=== PATIENT | male | born 1995 | race Caucasian/White ===

== ENCOUNTER 2025-02-03 19:45 | Emergency (ER) | payer BC, SELFPAY ==
[2025-02-03 19:51] VITALS: BP 146/92
[2025-02-03 22:21] VITALS: BP 147/93
[2025-02-03 23:47] VITALS: BMI 33.8
[2025-02-04] MEDS: DECADRON 10 MG IV (00:40)
[2025-02-04] MEDS: TORADOL 15 MG IV (00:40)
[2025-02-04 02:00] VITALS: BP 133/78
[2025-02-04 02:48] LABS: % Basophils 0.3 % (0-2); % Eosinophils 1.6 % (0-6); % Immature Granulocytes 0.2 % (0-0.5); % Lymphocytes 33.3 % (20.5-51.1); % Monocytes 9.1 % (1.7-9.3); % Neutrophils 55.5 % (42.2-75.2); Absolute Eosinophils 0.1 10^3/uL (0-0.7); Absolute Lymphocytes 2.1 10^3/uL (1.2-3.4); Absolute Monocytes 0.6 10^3/uL (0.1-0.6); Absolute Neutrophils 3.5 10^3/uL (1.4-6.5); Hematocrit 44.2 % (39.0-52.0); Hemoglobin 15.9 g/dL (13.0-18.0); Mean Corpuscular Hgb 29.7 pg (27.0-31.0); Mean Corpuscular Volume 82.6 fL (80.0-94.0); Mean Platelet Volume 9.1 fL (7.4-10.4); Nucleated Red Blood Cells % 0 % (-); Platelet Count 201 10^3/uL (130-400); Red Blood Cell Count 5.35 10^6/uL (4.70-6.10); Red Cell Dist. Width 12.6 % (11.5-14.5); White Blood Cell Count 6.3 10^3/uL (4.8-10.8)
--- NOTE | 2025-02-04 03:04 | ED.GENMED ---
History of Present Illness
General
Chief Complaint: Swallowing Problem
Source: patient
Exam Limitations: none
Time Seen by Provider: 02/03/25 23:49
Nursing documentation reviewed up to this point in time: agreed with
History of Present Illness
History of Present Illness:
29-year-old male presenting to the emergency department today with concerns of some difficulty swallowing for the past week some mild pain mild swelling denies any fevers chest pain shortness of breath.
Review of Systems
Review of Systems
Allergies reviewed?: Yes
All Other Systems: ROS reviewed and negative except as documented in HPI and ROS
Phy Exam
Physical Exam
Physical Exam:
GENERAL: Alert , in no apparent distress
EYE: pupils equal and reactive
NECK: Supple, no significant adenopathy.
ENT: Soft palate posteriorly superficial ulcerations but no significant swelling to the tonsils. o/p clr, mmm.
CARDIAC: Regular rate and rhythm .
LUNGS: Clear breath sounds bilaterally, no acute respiratory distress, no wheezes/rales/rhonchi
ABDOMEN: Soft, without focal tenderness, no r/g, no cvat
NEUROLOGICAL: Alert and oriented, no focal neuro deficits
SKIN: Warm and dry, skin intact.
MUSCULOSKELETAL: No edema, well perfused.
PSYCH: Normal and appropriate interaction.
Course
Orders/Labs/Results
Orders:
Orders
02/04/25 00:36
CT Neck With Iv Contrast Urgent
Comment:
Reason For Exam: nck pain swelling trouble swallowing, hx of CA
Dexamethasone Sod Phosphate [Decadron] 10 mg IV NOW STA
Ketorolac [Toradol] 15 mg IV NOW STA
02/04/25 02:41
BMP [Basic Metabolic Panel] Urgent
CBC/With Diff [Complete Blood Count/With Diff] Urgent
02/04/25 02:41
Vital Signs
Initial and Last Documented VS:
Initial Vital Signs
Temp Pulse Resp BP Pulse Ox
98.3 F 73 20 146/92 98
02/03/25 19:51 02/03/25 19:51 02/03/25 19:51 02/03/25 19:51 02/03/25 19:51
Last Documented Vital Signs
Temp Pulse Resp BP Pulse Ox
98.3 F 69 18 147/93 98
02/03/25 19:51 02/03/25 22:21 02/03/25 22:21 02/03/25 22:21 02/03/25 23:50
MDM/Problems Addressed
MDM/Problems Addressed:
29-year-old male presenting to the emergency department today with concerns of difficulty swallowing over the past week denies significant observable swelling no fevers. Here has some shallow ulcers to the posterior pharynx but otherwise no
significant swelling. CT scan was performed considering his history of cancer. This did not show any acute abnormalities. With a steroid to help with his sciatic symptoms as well as potential swelling of the back of the throat. Otherwise stable
for outpatient follow-up. Return precaution given
*Critical Care Note
Total Time (30-74mins, 75-104mins- exclusive of procedures): Not Applicable
ED Attending Note
-
Portions of this chart may have been created with voice recognition software.� Occasional wrong word or��sound alike� substitutions may have occurred due to the inherent limitations of voice recognition software.
Discharge Plan
Departure
Patient Disposition: Home (Routine Discharge)
Date of Disposition: 02/04/25
Time of Disposition: 03:06
Patient with high blood pressure during this ER visit?: No
Condition: Good
Covid-19: Not Applicable
Discharge Problem:
Throat pain
Instructions: Sore Throat, Adult (DC)
Prescriptions:
New
prednisone 20 mg tablet
40 mg PO DAILY 4 Days Qty: 8 0RF
Referrals:
Louis Novak, [Family Provider, Family Practice]
Activity Restrictions/Additional Instructions:
You came to the emergency department today with concerns of throat discomfort. Here you had a reassuring assessment. Please take the prescribed steroid. Follow-up closely with your primary care doctor. Return for any worsening, new or concerning
symptoms.
Interventions
Interventions:
*Risk Screen - Suicide Last Done: 02/03/25 19:51
*General Assessment Last Done: 02/03/25 19:51
*Neglect/Abuse Screening Last Done: 02/03/25 19:51
*ED- Fall Risk Assessment Last Done: 02/03/25 23:48
*ED COVID-19 Vaccine History Last Done: 02/03/25 23:47
ED-EENT Assessment Last Done: 02/03/25 23:50
FN-Hsbgbo-Aeojurmdgl Assessment Last Done: 02/03/25 23:52
ED- Pulmonary Assessment Last Done: 02/03/25 23:50
ED- Neurological Assessment Last Done: 02/03/25 23:50
ED-Musculoskeletal Assessment Last Done: 02/03/25 23:54
ED Swallowing Screen Last Done: 02/03/25 23:48
Discharge Date and Time
Print Language: GUINEAN
[2025-02-04 03:06] LABS: Blood Urea Nitrogen 12 mg/dl (9-20); Carbon Dioxide 28 mmol/L (22-30); Chloride 103 mmol/L (98-107); Estimated Creatinine Clearance > 125 ml/min; Glucose 85 mg/dl (70-99); Potassium 4.3 mmol/L (3.5-5.1); Sodium 143 mmol/L (135-145); eGFR > 60.00
[2025-02-04 03:30] VITALS: BP 133/78
== END 2025-02-04 03:30 | disposition home or self-care (01) ==
LOC: EMR 19:45
PROVIDERS: Physician Assistant; EMERGENCY PHYSICIAN Student in an Organized Health Care Education/Training Program; FAMILY PHYSICIAN Family Medicine
DX: R07.0 Pain in throat (principal)
CPT/HCPCS: 99284; 96374; 96375; 70491; 80048; 85025; Q9967

== ENCOUNTER → 2025-03-29 14:30 | Outpatient (REF) | payer BC, SELFPAY | LOC: CLAB 14:30 | PROVIDERS: ATTENDING PHYSICIAN Physician Assistant | DX: B37.0 Candidal stomatitis (principal) | CPT/HCPCS: 87070; 87205 ==

== ENCOUNTER → 2025-04-07 07:23 | Outpatient (REF) | payer BC, SELFPAY | LOC: MRI 07:23 | PROVIDERS: ATTENDING PHYSICIAN Physical Medicine & Rehabilitation; FAMILY PHYSICIAN Family Medicine | DX: M54.16 Radiculopathy, lumbar region (principal) | CPT/HCPCS: 72148 ==

== ENCOUNTER → 2025-07-13 15:56 | Outpatient (REF) | payer BC, SELFPAY | LOC: RAD 15:56 | PROVIDERS: ATTENDING PHYSICIAN Nurse Practitioner Family; FAMILY PHYSICIAN Family Medicine; REFERRING PHYSICIAN Internal Medicine Critical Care Medicine | DX: R13.10 Dysphagia, unspecified (principal); R91.1 Solitary pulmonary nodule | CPT/HCPCS: 71250; 76536 ==

== ENCOUNTER 2025-08-15 13:49 | Emergency (ER) | payer BC, SELFPAY ==
[2025-08-15] VITALS (8 sets, daily range): BP systolic 110–140; BP diastolic 73–85; PULSE 68–83; BMI 30.4
[2025-08-15 14:25] LABS: Hematocrit 46.0 % (39.0-52.0); Hemoglobin 16.5 g/dL (13.0-18.0); Mean Corp Hgb Conc. 35.9 g/dL (33.0-37.0); Mean Corpuscular Volume 79.7 fL (80.0-94.0); Nucleated Red Blood Cells % 0 % (-); Platelet Count 192 10^3/uL (130-400); Red Cell Dist. Width 12.5 % (11.5-14.5)
[2025-08-15 14:45] LABS: ALT (SGPT) 32 U/L (0-50); AST (SGOT) 24 U/L (17-59); Albumin 5.2 g/dl (3.5-5.0); Alkaline Phosphatase 65 U/L (38-126); Blood Urea Nitrogen 8 mg/dl (9-20); Calcium 10.0 mg/dl (8.4-10.2); Carbon Dioxide 30 mmol/L (22-30); Chloride 99 mmol/L (98-107); Glucose 83 mg/dl (70-99); Potassium 4.1 mmol/L (3.5-5.1); Sodium 137 mmol/L (135-145); Total Protein 8.1 g/dl (6.3-8.2); eGFR > 60.00
--- NOTE | 2025-08-15 17:09 | ED.GENMED ---
History of Present Illness
General
Chief Complaint: Fainting Sensation
Source: patient
Exam Limitations: none
Time Seen by Provider: 08/15/25 16:57
Nursing documentation reviewed up to this point in time: agreed with
History of Present Illness
History of Present Illness:
Patient to the emergency department with complaint of weakness, near syncope. States his symptoms started today while at work. 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 He was
seen by the school nurse. Blood pressure checked by nurse and he was told that his blood pressure was running high. He also complains of increasing shortness of breath and cough. states that he had diarrhea over the weekend. This has
resolved. He denies any fever or chills. No prior history of same. Brought to the emergency department by spouse for evaluation. He reports having panic attacks in the past but states symptoms today are not similar to panic attacks in the past.
Past History
Past History
ED Past Medical History: Asthma and Psychiatric (Anxiety)
Review of Systems
Review of Systems
Allergies reviewed?: Yes
All Other Systems: ROS reviewed and negative except as documented in HPI and ROS
EENT: Reports no symptoms
Respiratory: Reports cough and trouble breathing
Cardiac: Reports other (Near syncope)
ABD/GI: Reports diarrhea (2 days ago)
: Reports no symptoms
Musculoskeletal: Reports no symptoms
Skin: Reports no symptoms
Neurological: Reports weakness
Psychiatric: Reports no symptoms
Phy Exam
General Physical Exam
General Presentation: well appearing and no apparent distress
General age: appears stated age
General Skin: warm and dry
General Habitus: normal
Cardiovascular Exam
Cardiovascular Exam: regular rate/rhythm and no edema
Pulmonary Exam
Pulmonary Exam: lungs clear and no respiratory distress
Gastrointestinal Exam
Gastrointestinal Exam: normal bowel sounds, non tender, soft, no organomegaly, no pulsatile mass and non distended
Neurological Exam
Neurological Exam: alert and oriented x3
Musculoskeletal Exam
Musculoskeletal Exam: full ROM and neuro vasc intact
Skin Exam
Skin Exam: normal color, warm/dry and no rash
Psychiatric Exam
Psychiatric Exam: normal mood/affect
Course
Orders/Labs/Results
Orders:
Orders
08/15/25 13:57
Electrocardiogram (*1) Urgent
Reason for Study: Hypertension, Benign
EKG- Treatment ONCE
08/15/25 14:14
CMP [Comprehensive Metabolic Panel] Urgent
Complete Blood Count/With Diff Urgent
08/15/25 17:08
Orthostatic VS- Treatment ONCE
08/15/25 17:09
D-Dimer Urgent
0.9% Sodium Chloride 1000 ml [Nss] 1,000 ml IV BOLUS
CR Chest - 2 Views Urgent
Comment:
Reason For Exam: SOB
Abnormal Lab Results
08/15/25
14:14
MCV 79.7 L fL
(80.0-94.0)
BUN 8 L mg/dl
(9-20)
Albumin 5.2 H g/dl
(3.5-5.0)
08/15/25 14:14
08/15/25 14:14
Vital Signs
Initial and Last Documented VS:
Initial Vital Signs
Resp
18
08/15/25 13:51
Last Documented Vital Signs
Temp Pulse Resp BP Pulse Ox
98.0 F 65 18 118/84 97
08/15/25 13:55 08/15/25 19:30 08/15/25 13:55 08/15/25 19:01 08/15/25 19:30
*Radiology
Radiology exam reviewed: radiology read reviewed
*Pulse Oximetry
SaO2: 99
Oxygen Mode of Delivery: Room air
Patient hypoxic: no
*Critical Care Note
Total Time (30-74mins, 75-104mins- exclusive of procedures): Not Applicable
Update Note
Update Note:
Patient to the emergency department for evaluation of near syncopal event. Incident occurred today while at work. He states he was teaching a class when he suddenly felt like he was going to pass out. He also reports feeling more short of breath
over the past couple days. He denies any fever or chills. On arrival to ED he is awake alert and oriented vital signs are stable and he remains afebrile. Labs reviewed WBC of 5.8, CMP unremarkable. Chest x-ray without acute findings. Pulse ox
98% on room air. EKG normal sinus rhythm. No findings to explain his symptoms today. Will discharge home, close follow-up with PCP. He was instructed on signs and symptoms to return to the emergency department and he is agreeable to this plan.
ED Attending Note
-
Portions of this chart may have been created with voice recognition software.� Occasional wrong word or��sound alike� substitutions may have occurred due to the inherent limitations of voice recognition software.
Discharge Plan
Departure
Patient Disposition: Home (Routine Discharge)
Date of Disposition: 08/15/25
Time of Disposition: 19:34
Patient with high blood pressure during this ER visit?: No
Condition: Good
Covid-19: Not Applicable
Discharge Problem:
Near syncope
Instructions: Near Fainting (DC)
Prescriptions:
No Action
prednisone 20 mg tablet
40 mg PO DAILY 4 Days Qty: 8 0RF
Referrals:
UNKNOWN,PT [Unknown Provider]
Stand Alone Forms: Return to Work
Activity Restrictions/Additional Instructions:
Follow-up with your family doctor. Return to the emergency department immediately for any changes in/worsening of your symptoms.
Interventions
Interventions:
*Risk Screen - Suicide Last Done: 08/15/25 13:51
*General Assessment Last Done: 08/15/25 16:48
*Neglect/Abuse Screening Last Done: 08/15/25 16:48
*ED COVID-19 Vaccine History Last Done: 08/15/25 16:48
*ED Influenza Vaccine History Last Done: 08/15/25 16:48
[facility] Fall Risk Assessment Tool Last Done: 08/15/25 16:48
*Nursing Disposition Last Done: 08/15/25 19:53
ED- Cardiac Assessment Last Done: 08/15/25 16:58
ED- Neurological Assessment Last Done: 08/15/25 16:58
Discharge Date and Time
Discharge Date/Time: 08/15/25 19:53
Print Language: [place]
[2025-08-15] MEDS: NSS 1000 IV (17:27)
[2025-08-15 18:34] LABS: D-Dimer < 0.27 ug/mlFEU (0.00-0.50)
== END 2025-08-15 19:53 | disposition home or self-care (01) ==
LOC: EMR 13:49
PROVIDERS: Nurse Practitioner; Student in an Organized Health Care Education/Training Program; EMERGENCY PHYSICIAN Emergency Medicine; FAMILY PHYSICIAN Family Medicine
DX: R55 Syncope and collapse (principal); I10 Essential (primary) hypertension; J45.909 Unspecified asthma, uncomplicated; F41.9 Anxiety disorder, unspecified
CPT/HCPCS: 99284; 96360; 71046; 80053; 85025; 85379; 93005

== ENCOUNTER 2025-08-21 21:58 | Emergency (ER) | payer BC, SELFPAY ==
[2025-08-21 22:09] VITALS: BP 164/107
[2025-08-21 22:43] VITALS: BP 129/83
[2025-08-21 23:00] VITALS: BP 130/78
[2025-08-21 23:07] VITALS: BMI 30.4
[2025-08-21] MEDS: ATIVAN 1 MG PO (23:07)
[2025-08-21 23:24] LABS: Hematocrit 45.0 % (39.0-52.0); Hemoglobin 16.4 g/dL (13.0-18.0); Mean Corp Hgb Conc. 36.4 g/dL (33.0-37.0); Mean Corpuscular Volume 78.7 fL (80.0-94.0); Nucleated Red Blood Cells % 0 % (-); Platelet Count 145 10^3/uL (130-400); Red Cell Dist. Width 12.4 % (11.5-14.5)
[2025-08-21 23:37] LABS: COVID-19 Antigen Negative (Negative)
[2025-08-21 23:42] LABS: ALT (SGPT) 34 U/L (0-50); AST (SGOT) 25 U/L (17-59); Albumin 4.9 g/dl (3.5-5.0); Alkaline Phosphatase 72 U/L (38-126); Blood Urea Nitrogen 8 mg/dl (9-20); Calcium 9.6 mg/dl (8.4-10.2); Carbon Dioxide 22 mmol/L (22-30); Chloride 102 mmol/L (98-107); Estimated Creatinine Clearance > 125 ml/min; Glucose 105 mg/dl (70-99); Potassium 3.2 mmol/L (3.5-5.1); Sodium 136 mmol/L (135-145); Total Protein 7.5 g/dl (6.3-8.2); eGFR > 60.00
[2025-08-21 23:47] VITALS: BP 130/73
[2025-08-21 23:49] LABS: Troponin I 0.013 ng/ml
[2025-08-22] VITALS: BP 124/76
--- NOTE | 2025-08-22 00:04 | ED.GENMED ---
History of Present Illness
General
Chief Complaint: Breathing Problem
Time Seen by Provider: 08/21/25 22:22
History of Present Illness
History of Present Illness:
see MDM
Past History
Past History
ED Past Medical History: Asthma and Psychiatric (Anxiety)
Phy Exam
Physical Exam
Physical Exam:
See MDM
Course
Orders/Labs/Results
Orders:
Orders
08/21/25 22:04
ECG [Electrocardiogram (*1)] Urgent
Reason for Study: Chest Pain
EKG- Treatment ONCE
08/21/25 22:32
CR Chest - 2 Views Urgent
Comment:
Reason For Exam: SOB, cough
08/21/25 22:42
Lorazepam [Ativan] 1 mg PO NOW STA
08/21/25 23:15
COVID-19 Antigen Urgent
Source: Nasal Swab
Complete Blood Count/With Diff Urgent
Comprehensive Metabolic Panel Urgent
Troponin I Urgent
Influenza A+B Rapid Molecular Urgent
VALE Source: Nasal Swab
Specimen Description:
08/22/25 00:04
Potassium Chloride [KCl] 40 meq PO NOW STA
Abnormal Lab Results
08/21/25
23:15
MCV 78.7 L fL
(80.0-94.0)
Absolute Lymphs (auto) 0.6 L 10^3/uL
(1.2-3.4)
Absolute Monos (auto) 0.7 H 10^3/uL
(0.1-0.6)
Neutrophils % 79.0 H %
(42.2-75.2)
Lymphocytes % 9.7 L %
(20.5-51.1)
Monocytes % 10.5 H %
(1.7-9.3)
Potassium 3.2 L mmol/L
(3.5-5.1)
BUN 8 L mg/dl
(9-20)
Glucose 105 H mg/dl
(70-99)
08/21/25 23:15
08/21/25 23:15
Vital Signs
Initial and Last Documented VS:
Initial Vital Signs
Temp Pulse Resp BP Pulse Ox
97.9 F 108 20 164/107 99
08/21/25 22:09 08/21/25 22:09 08/21/25 22:09 08/21/25 22:09 08/21/25 22:09
Last Documented Vital Signs
Temp Pulse Resp BP Pulse Ox
99.4 F 92 18 124/76 98
08/21/25 23:00 08/22/25 00:15 08/21/25 22:45 08/22/25 00:00 08/22/25 00:15
MDM/Problems Addressed
Differential Diagnosis Includes:
Note:
CHIEF COMPLAINT(S)
Fever and chest pain.
HISTORY OF PRESENT ILLNESS
The patient is a 29-year-old male with a significant past medical history, including multiple occurrences of cancer, who presented with fever and chest pain. The patient reported developing a fever starting last night with temperatures ranging
between 99�F to 103�F. Associated symptoms include chills and sweating. Approximately two to three hours prior to the emergency visit, the patient experienced onset of chest pain, described as sharp and associated with cramping sensations in the
arms. Additionally, the pain was noted to radiate up into the neck and down into the legs, accompanied by sensations of everything 'closing up.' The patient also reported feeling uncontrollable shaking, which could potentially be attributed to a
fever. Shortness of breath and dizziness were noted, but the patient denied smoking or having a familial history of early-onset heart disease. The patient attempted symptomatic relief with acetaminophen, cold medications, and DayQuil.
PAST MEDICAL AND SURGICAL HISTORY
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 The patient also reported a history of symptoms consistent with thrush, though tests were negative.
Currently, the patient is on pantoprazole for gastrointestinal issues, possibly reflux-related as per recent gastroenterology evaluations.
SOCIAL DETERMINANTS OF HEALTH
The patient acknowledges increased situational stress with noted life events, including their father�s recent cancer diagnosis and planning for an upcoming wedding. These factors could contribute to the patient�s anxiety levels and present symptoms.
PHYSICAL EXAM
General: Alert, no acute distress.
Skin: Warm, dry.
Head: Normocephalic, atraumatic
Neck: Appears supple, trachea midline.
Eyes, Ears, Nose, Mouth, and Throat: Moist mucous membranes
Cardiovascular: No signs of cyanosis
Respiratory: Respirations are non-labored. Lungs clear
Abdomen: Non-distended
Musculoskeletal: No deformities
Neurological: No focal neurological deficit observed.
Psychiatric: Appears mildly anxious
PLAN
The plan includes further investigation with chest X-ray imaging, blood tests to evaluate possible cardiac involvement, and a workup aimed at ruling out conditions such as COVID-19 or influenza given the constellation of symptoms. The evaluation
includes consideration for potential anxiety-related symptoms, offering a dose of lorazepam (Ativan) to help alleviate acute anxiety symptoms.
DIFFERENTIAL DIAGNOSIS
The Differential Diagnosis includes, in no particular order and is not limited to:
- Viral infection (e.g., COVID-19, Influenza)
- Acute coronary syndrome
- Anxiety or panic disorder
- Respiratory tract infection (e.g., pneumonia)
- Pulmonary embolism
- Pericarditis
- Myocarditis
- Gastroesophageal reflux disease (GERD)
- Stress-induced cardiomyopathy
- Musculoskeletal chest pain
PATIENT EDUCATION AND COUNSELING
The patient was educated on the possibility of symptoms being stress-induced and the role anxiety might play in his physical well-being. The patient was reassured that the planned workup is essential to rule out serious underlying conditions and to
provide comprehensive care.
MEDICATION RECONCILIATION
The patient was offered lorazepam (Ativan) to assist in alleviating acute anxiety symptoms noted during the visit.
MEDICAL DECISION MAKING
-Complexity of Data Reviewed: Chronic conditions affecting care include the patients history of cancer and partial lobectomy.
-Data:
Category 3:
Discussion of management with respect to the potential anxiety component influencing the symptoms.
-Risk:
Consideration of Admission/Observation: Escalation of care including admission/observation was considered given the complexity and risk of the patients presenting complaint, exam findings, and/or their underlying comorbidities. However, ultimately I
feel the patient is safe for outpatient management with close follow-up. Reasoning: Work-up reassuring, does not reveal any acute life/organ-threatening processes, patients symptoms well controlled upon reevaluation, reexamination is reassuring,
vitals are stable, patient agreeable with discharge, reliable for follow-up.
DIAGNOSIS
- Fever, unspecified (ICD-10 R50.9)
- Chest pain, unspecified (ICD-10 R07.9)
- History of malignant neoplastic disease (ICD-10 Z85.840)
Disposition:
SUMMARY OF ENCOUNTER
The patient presented to the emergency department with chest discomfort. Initial evaluations including an EKG showed no ischemic changes, and troponin levels were negative, indicating no acute coronary syndrome. The patient tested positive for
influenza. We discussed the risks versus benefits of starting oseltamivir (Tamiflu), but the patient declined. Additionally, we addressed the patients ongoing anxiety, with a discussion about reintroducing escitalopram (Lexapro) as it had been
effective for him in the past.
DISPOSITION
Discharge
PLAN
Restart escitalopram (Lexapro) for anxiety management. Prescribe a one-month supply and recommend follow-up with primary care for further evaluation and continuation.
PATIENT EDUCATION AND COUNSELING
Educated the patient on the potential stress-induced nature of symptoms and the importance of managing anxiety. Discussed the role of escitalopram (Lexapro) in managing anxiety and advised follow-up with primary care for further management.
FOLLOW-UP INSTRUCTIONS
The patient is advised to follow up with their primary care doctor to reassess the need for continued use of escitalopram (Lexapro) and for ongoing care management.
MEDICATION RECONCILIATION
Prescribed escitalopram (Lexapro) for anxiety management.
MEDICAL DECISION MAKING
-Complexity of Data Reviewed: Chronic conditions affecting care include the patient�s history of cancer and partial lobectomy. Differential diagnosis includes viral infection (e.g., COVID-19, Influenza), acute coronary syndrome, anxiety or panic
disorder, respiratory tract infection (e.g., pneumonia), pulmonary embolism, pericarditis, myocarditis, gastroesophageal reflux disease (GERD), stress-induced cardiomyopathy, and musculoskeletal chest pain.
-Data:
Category 1: Tests and documents: EKG and troponin levels were reviewed.
Category 3: Discussion of management with the patient regarding the influenza diagnosis and management, as well as the reinstatement of escitalopram (Lexapro) for anxiety.
DIAGNOSIS
- Influenza (ICD-10 J10.1)
- Anxiety disorder, unspecified (ICD-10 F41.9)
*Pulse Oximetry
SaO2: 97
Oxygen Mode of Delivery: Room air
Patient hypoxic: no
*EKG
Interpreted by ED Provider?: Yes
EKG Intrepretation Date: 08/22/25
Interpretation: normal (Normal sinus rhythm at 100 bpm, normal axis, no ST elevation)
*Critical Care Note
Total Time (30-74mins, 75-104mins- exclusive of procedures): Not Applicable
ED Attending Note
-
Portions of this chart may have been created with voice recognition software.� Occasional wrong word or��sound alike� substitutions may have occurred due to the inherent limitations of voice recognition software.
Discharge Plan
Departure
Patient Disposition: Home (Routine Discharge)
Date of Disposition: 08/22/25
Time of Disposition: 00:07
Patient with high blood pressure during this ER visit?: No
Discharge Problem:
Influenza, Hypokalemia
Prescriptions:
New
hydroxyzine HCl 25 mg tablet
25 mg PO BID PRN (Reason: anxiety) Qty: 20 0RF
escitalopram oxalate [Lexapro] 10 mg tablet
10 mg PO DAILY Qty: 30 0RF
No Action
prednisone 20 mg tablet
40 mg PO DAILY 4 Days Qty: 8 0RF
Referrals:
UNKNOWN - PT DOES,NOT KNOW [Unknown Provider]
Activity Restrictions/Additional Instructions:
Please return for any worsening symptoms.
You may return at any time if you have further concerns.
Please follow up with your doctor at the first available appointment, preferably this week.
Thank you for choosing [facility].
Interventions
Interventions:
*Risk Screen - Suicide Last Done: 08/21/25 23:07
*General Assessment Last Done: 08/21/25 22:09
*Neglect/Abuse Screening Last Done: 08/21/25 23:07
*ED COVID-19 Vaccine History Last Done: 08/21/25 23:07
*ED Influenza Vaccine History Last Done: 08/21/25 23:07
[facility] Fall Risk Assessment Tool Last Done: 08/21/25 23:08
*Nursing Disposition Last Done: 08/22/25 00:26
ED- Cardiac Assessment Last Done: 08/21/25 23:08
ED- Pulmonary Assessment Last Done: 08/21/25 23:08
Discharge Date and Time
Discharge Date/Time: 08/22/25 00:36
Print Language: L[place]
[2025-08-22] MEDS: KCL 40 MEQ PO (00:19)
== END 2025-08-22 00:36 | disposition home or self-care (01) ==
LOC: EMR 21:58
PROVIDERS: EMERGENCY PHYSICIAN Student in an Organized Health Care Education/Training Program; FAMILY PHYSICIAN Family Medicine
DX: J10.1 Influenza due to other identified influenza virus with other respiratory manifestations (principal); E87.6 Hypokalemia; R07.9 Chest pain, unspecified; J45.909 Unspecified asthma, uncomplicated; Z85.47 Personal history of malignant neoplasm of testis; Z11.52 Encounter for screening for COVID-19
CPT/HCPCS: 99285; 71046; 80053; 84484; 85025; 87502; 87811; 93005